=== PATIENT | female | born 1965 | race Caucasian/White ===

== ENCOUNTER → 2025-03-25 | Outpatient (CLI) | payer MEDICARE ==
--- NOTE | 2025-03-25 14:00 | NUR ---
MBSS COMPLETED (OUTPATIENT). SILENT ASPIRATION with pudding and mildly thick liquids via tsp after the swallow. RECOMMENDATIONS: pureed solids (NOTHING THAT MELTS: pudding, jello, ice cream, etc), moderately thick liquids (no straws) and pills crushed with pureed as tolerated. COMPENSATORY STRATEGIES: 1. sit upright during oral intake 2. small bites/sips 3. slow oral intake NOTES: Pt reported to choke with solids/liquids especially when behavior is not her usual. Pt with intact teeth and accompanied by neonatal intensive care unit nurse. As per neonatal intensive care unit nurse, patient on ground solids and downgraded to pureed solids when not in usual state (combative; noncompliant). Pt uses thickener on liquids; however unable to report what level of thickener. DIAGNOSTIC FINDINGS: Pt presented with mild oral and moderate pharyngeal dysphagia characterized by decreased oral motor strength, ROM, and coordination; decreased sensation; decreased tongue base retraction; delayed pharyngeal response trigger, decreased velopharyngeal closure, and decreased hyo-laryngeal elevation/excursion. These characteristics are evidenced by inadequate mastication of solids; increased bolus transit time; premature spillage to valleculae with spillover to pyriform sinuses; residue on body and base of tongue, valleculae, pyriform sinuses and posterior pharyngeal wall unable to completely clear as patient is not appropriate to follow commands for compensatory strategies for safe swallows; resulting in deep non-transient penetration during the swallow with pudding and mildly thick liquids via tsp leading to SILENT ASPIRATIONS. Pt also noted with wet vocal quality likely from oral secretions unable to clear with cued throat clears and effortful swallows. FACULTY RESEARCH PHYSICIAN reviewed results and recommendations with patient and neonatal intensive care unit nurse. FACULTY RESEARCH PHYSICIAN educated patient on risks and consequences of aspiration. Speech therapy warranted at this time to address mild oral and moderate pharyngeal dysphagia as much as patient is able to participate. All questions answered. Addendum: 03/25/[address] [facility] Amended: Links added.
--- NOTE | 2025-03-27 04:36 | HMCIMG ---
Fluoroscopy is utilized for the procedure. The total fluoroscopy time is 004.0 min. The total dose area product is 226.20 (uGym2). The interpreting radiologist was not present during the procedure. /[place]
== END | disposition home or self-care (01) ==
LOC: RAH 13:21
PROVIDERS: ATTEND Internal Medicine Gastroenterology
DX: R13.10 Dysphagia, unspecified (principal); R63.30 Feeding difficulties, unspecified
CPT/HCPCS: 74230; 92611